=== PATIENT | male | born 1955 | race Caucasian/White ===

== ENCOUNTER 2024-07-29 09:25 | Emergency (ER) | payer MEDICARE, MEDICAID, SELFPAY ==
--- NOTE | 2024-07-29 09:31 | XR_ITS ---
Examination: CTA chest with intravenous contrast 2-D reconstructions 3-D reconstructions, vascular Date and time of exam: July 29, 2024 1122 hours INDICATIONS: Coughing shortness of breath chest pain today CTDI: vol (mGy) 20.9 DLP: (mGycm) 397 Technique: Multiple axial sections of the thorax have been obtained. 3 mm slice thickness, from below the hemidiaphragms to above the apices of the lungs. Mediastinal and lung density settings have been obtained. 2-D sagittal and coronal reconstructions. 3-D angiographic renderings, 3-D volume renderings, 3D post processing, vascular maximum intensity projections obtained. Contrast administered is 100 cc Isovue-370 intravenous. Low dose protocols were performed. One or more of the following dose reduction techniques were used; automated exposure control, adjustment of the mA and/or KV according to patient size, use of iterative reconstruction technique. Findings: No thoracic aortic aneurysmal dilatation No pulmonary artery emboli Mild calcification left main left anterior descending coronary artery Mild enlargement cardiac contour At least 10 subcentimeter pulmonary nodules ranging in size from 2 to 6 mm in both lungs No pulmonary edema No lobar pneumonia Atelectasis in the lingular segment Liver mildly irregular in contour no visualized liver lesion Contracted gallbladder with 3 mm gallstone Spleen is not enlarged Atrophic pancreas Kidneys partially visualized no hydronephrosis Prominent osteopenia IMPRESSION: Negative for pulmonary artery emboli At least 10 subcentimeter bilateral pulmonary nodules, with this study as baseline recommend 6 month follow-up CT chest without contrast to exclude early pulmonary nodular metastatic disease No pneumonia or pulmonary edema or pleural disease Suspect primary hepatocellular disease Recommend hepatobiliary sonography follow-up to confirm cholelithiasis
--- NOTE | 2024-07-29 09:31 | EKG_ITS ---
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
--- NOTE | 2024-07-29 09:31 | XR_ITS ---
Examination: AP chest single view Technique one AP portable upright chest single view Exam date and time: July 29, 2024 0943 hours Comparison September 03, 2023 INDICATIONS: Shortness of breath today, history chronic coughing and worsening shortness of breath August 2023, history mild CHF FINDINGS: Findings suspicious for mild chronic heart failure Mild prominence left ventricle Prominent vascular congestion Septal subtle edema at the lung bases Cardiac leads stable position Prominent osteopenia IMPRESSION: Suspicious for mild chronic heart failure
[2024-07-29 09:32] VITALS: BP 138/84; PULSE 72; RESP 20; TEMP 36.9; O2SAT 100
--- NOTE | 2024-07-29 09:32 | EDNOTE_ITS ---
ED SOB =RME/HPI General Chief Complaint: Shortness of Breath/Dyspnea Stated Complaint: SOB Time Seen by Provider: 07/29/24 09:29 Arrival date/time: 07/29/24 09:25 RME / HPI RME / HPI Narrative: This section includes all my notes and documentations, including HPI, PE, and ED course. Earl Garza MD HPI: 69-year-old male here with about a week history of worsening cough, productive cough, purulent sputum, and dyspnea. No fever or chills. No other complaints. ROS: All negative except as documented in HPI. Physical Exam: General: Alert and oriented. Hacking cough noted. Eyes: Conjunctivae and lids clear. ENT: No nasal congestion. Pharynx normal. TM normal bilaterally. Neck: Supple. Heart: RRR. Lungs: In mild respiratory distress. Good air movement. Moderately decreased air movement with diffuse rhonchi. Abdomen: Soft and nontender. Normal bowel sounds. No distension. No rebound or guarding. Back: No CVA tenderness. Skin: Warm and dry. Neuro: Alert and oriented X 3. I reviewed all diagnostic test results. My interpretation of the EKG is sinus rhythm with no acute ST?T changes. My interpretation of the chest x-ray is increased vascular congestion. My review of the chest CTA report is no PE. Blood tests and urine tests unremarkable. COVID-positive. At this point, diagnoses include COPD exacerbation and COVID. Treatment here included Solu-Medrol and Xopenex neb treatment and Zithromax. Significant improvement noted. Recommended a trial of treatment at home. Based on my best medical judgment, made decision no further evaluation or treatment indicated at this time. Patient understands and agrees to the discharge instructions customized and printed, see below. Discharge instructions from Dr. Garza: --No physical exertion for 3 days to help rest the lungs. ?-No smoking or exposure to smoking or pets or dust or cold or humidity. --Zithromax to kill the germs causing the bronchitis. --Prednisone to help decrease the swelling in the airways. --Albuterol neb treatment every 4-6 hours for 3 days to help keep the airways open. Then as needed for cough or shortness of breath. --See a private doctor on 08/02/2024 for recheck and further care. Ask to review all test results and official radiology reports, to make sure you receive all necessary follow-ups and monitoring. Ask for help until you are completely better. --Seek immediate medical care with worsening or with any concerns. Earl Garza MD Related Data Home Medications ?Medication ?Instructions ?Recorded ?Confirmed bupropion HCl 150 mg tablet,12 hr 150 mg PO DAILY ##0 01/05/09 sustained-release (Wellbutrin SR) levalbuterol tartrate 45 15 gm IH BID ##0 01/05/09 mcg/actuation aerosol inhaler (Xopenex HFA) Albuterol Sulfate/Ipratropium ##0 04/14/12 (Combivent Inhaler) TIOTROPIUM BROMIDE (SPIRIVA 18 MCG) ##0 04/14/12 loratadine 10 mg tablet 10 mg PO DAILY ##0 04/14/12 Previous Rx's ?Medication ?Instructions ?Recorded albuterol sulfate 90 mcg/actuation 2 puff inhalation QID PRN 09/03/23 aerosol inhaler shortness of breath or wheezing #8.5 grams ipratropium 0.5 mg-albuterol 3 mg 3 ml inhalation Q6H PRN shortness 09/03/23 (2.5 mg base)/3 mL nebulization of breath #90 mL soln prednisone 50 mg tablet 50 mg PO QDAY #7 tabs 09/03/23 tiotropium bromide 18 mcg capsule 1 cap inhalation QDAY #1 puff 09/03/23 with inhalation device (Spiriva with HandiHaler) albuterol sulfate 2.5 mg/0.5 mL 2.5 mg (0.5 mL) inhalation Q6H PRN 07/29/24 solution for nebulization shortness of breath or wheezing #75 ea azithromycin 500 mg tablet 500 mg PO QDAY 3 days #3 tabs 07/29/24 (Zithromax TRI-ONELIA) prednisone 20 mg tablet 40 mg PO BID 3 days #12 tabs 07/29/24 Allergies Allergy/AdvReac Type Severity Reaction Status Date / Time No Known Allergies Allergy Verified 07/29/24 10:00 Course Quality Measures none Orders Category Date Time Status Bedside COVID-19 Antigen Test NOW Care 07/29/24 09:31 Active Bedside Influenza A&B Antigen Test NOW Care 07/29/24 09:[address] Screening NOW Care 07/29/24 09:31 Active EKG (ED ONLY) *Do not use* NOW Care 07/29/24 09:31 Completed Saline [Insert IV] NOW Care 07/29/24 09:31 Active Straight [In and Out Catheter] X1 Care 07/29/24 09:[address] angio chest Stat Exams 07/29/24 09:31 Completed EKG (ED Only) Stat Exams 07/29/24 09:31 Draft XR chest 1V portable Stat Exams 07/29/24 09:31 Completed ABG [Arterial Blood Gas] Stat Lab 07/29/24 10:35 Completed BNP [B-Type Natriuretic Peptide] Stat Lab 07/29/24 09:49 Completed CBC Stat Lab 07/29/24 09:49 Completed CMP [Comprehensive Metabolic Panel] Stat Lab 07/29/24 09:49 Completed D-Dimer Stat Lab 07/29/24 09:49 Completed Magnesium Stat Lab 07/29/24 09:49 Completed Troponin I Stat Lab 07/29/24 09:49 Completed Urinalysis, C/S if Indicated Routine Lab 07/29/24 10:50 Completed Azithromycin Po [Zithromax PO] Med 07/29/24 13:19 Discontinued 500 mg PO X1 ONE Levalbuterol Rt [Xopenex Rt Enedina] Med 07/29/24 09:30 Discontinued 1.25 mg INH X1 ONE MethylPREDNISolone.* [SoluMEDROL Inj] Med 07/29/24 09:30 Discontinued 125 mg IVP X1 ONE Sodium Chloride Rt Enedina 0.9% [NS Rt Enedina 0.9%] Med 07/29/24 09:30 Active 3 ml INH PRN PRN Vital Signs Vital signs: Vital Signs Temperature 98.4 F 07/29/24 09:32 Pulse Rate 72 07/29/24 09:32 Respiratory Rate 20 07/29/24 09:32 Blood Pressure 138/84 H 07/29/24 09:32 Pulse Oximetry (%) 100 07/29/24 09:32 Oxygen Delivery Method Nasal Cannula 07/29/24 09:32 Oxygen Flow Rate 6 07/29/24 09:32 Shortness of Breath / Dyspnea Patient data External records reviewed:: [facility] previous records and EMS form Clinical information provided by:: patient and EMS Social determinants that could affect healthcare access:: none Patient has the following chronic illnesses:: COPD How is presenting disease/condition affected by chronic disease/condition?: exacerbated by Evaluation data The following diagnostics were reviewed and interpreted by me:: lab results, radiology exam(s) and EKG tracing(s) (Paced rhythm (69 bpm). Earl Garza MD) Lab and/or radiology exams considered but not ordered:: None Interpretation Summary: COPD exacerbation and COVID Medications / Prescriptions Medications or Prescriptions considered but not ordered:: None Medication administrations:: Medication Administration History Sodium Chloride (Sodium Chloride Rt Enedina 0.9% 3 Ml Nebu) 3 ml INH PRN PRN PRN Reason: SOLN Stop: 08/28/24 09:29 Last Admin: 07/29/24 10:21 Dose: 3 ml Documented By: BJ Discontinued Medications Azithromycin (Azithromycin 250 Mg Tablet) 500 mg PO X1 ONE Stop: 07/29/24 13:20 Levalbuterol HCl (Levalbuterol Rt 1.25 Mg/0.5 Ml Nebu) 1.25 mg INH X1 ONE Stop: 07/29/24 09:31 Last Admin: 07/29/24 10:21 Dose: 1.25 mg Documented By: SARITA Methylprednisolone Sodium Succinate (Methylprednisolone Sod Succ 62.5 Mg/Ml 2ml Vial) 125 mg IVP X1 ONE Stop: 07/29/24 09:31 Last Admin: 07/29/24 09:51 Dose: 125 mg Documented By: JE Solu-Medrol and Xopenex neb treatment and Zithromax Consultations Consultation(s) initiated? (list below): No Diagnosis Shortness of Breath Differential Diagnosis: acute exacerbation of chronic obstructive airways disease, congestive heart failure, community acquired pneumonia, asthma with exacerbation and pulmonary embolism Most likely diagnosis given after review of the tests above:: COPD exacerbation and COVID Admission Indicated Admission indicated?: not indicated Explain why admission is indicated or not indicated:: Admission criteria not met Admission Request Was there a request for admission?: No Disposition Plan Disposition Plan: Discharge Discharge Attestation Discharge Attestation: The patient and all family members were given an opportunity to ask questions and understood the discharge instructions. Discharge instructions specifically effects, indications for sooner follow up or return to the emergency department, and the expected course of current diagnosis. Patient condition: Stable Discharge Plan Plan Patient Disposition: HOME (Self Care) Prescriptions/Referrals Prescriptions/Med Rec: New prednisone 20 mg tablet 40 mg PO BID 3 Days Qty: 12 0RF Taper: Prednisone Taper 20 mg DAILY for 2 Days and 0 Hour 10 mg DAILY for 2 Days and 0 Hour 5 mg DAILY for 7 Days and 0 Hour azithromycin [Zithromax TRI-ONELIA] 500 mg tablet 500 mg PO QDAY 3 Days Qty: 3 0RF albuterol sulfate 2.5 mg/0.5 mL solution for nebulization 2.5 mg inhalation Q6H PRN (Reason: shortness of breath or wheezing) Qty: 75 0RF Rx Instructions: for up to 3 doses No Action bupropion HCl [Wellbutrin SR] 150 MG tablet extended release 12 hr 150 mg PO DAILY Qty: 0 Patient Comments: TAKE ONE TAB BY MOUTH DAILY levalbuterol tartrate [Xopenex HFA] 15 GM HFA aerosol inhaler 15 gm IH BID Qty: 0 Patient Comments: TWO PUFFS INHAILED TWICE DAILY FOR COPD Albuterol Sulfate/Ipratropium (Combivent Inhaler) 14.7 GM AER.W.ADAP Qty: 0 loratadine 10 MG tablet 10 mg PO DAILY Qty: 0 TIOTROPIUM BROMIDE (SPIRIVA 18 MCG) 5 CAP/INH CAP.W.DEV Qty: 0 prednisone 50 mg tablet 50 mg PO QDAY Qty: 7 0RF ipratropium-albuterol 0.5 mg-3 mg(2.5 mg base)/3 mL solution for nebulization 3 ml inhalation Q6H PRN (Reason: shortness of breath) Qty: 90 0RF tiotropium bromide [Spiriva with HandiHaler] 18 mcg capsule, w/inhalation device 1 cap inhalation QDAY Qty: 1 0RF Rx Instructions: puncture 1 cap using device; one dose = 2 inhalations albuterol sulfate 90 mcg/actuation HFA aerosol inhaler 2 puff inhalation QID PRN (Reason: shortness of breath or wheezing) Qty: 8.5 0RF Referrals: No Primary/Family,Physician [Primary Care Provider] - In 1 week Problem List Clinical Impression: Acute exacerbation of chronic obstructive airways disease, COVID Patient/Caregiver Discharge Instructions Discharge Activity: activity as tolerated Education Materials: COVID-19 Home Care, ED COPD Flare Additional Instructions: Discharge instructions from Dr. Garza: --No physical exertion for 3 days to help rest the lungs. ?-No smoking or exposure to smoking or pets or dust or cold or humidity. --Zithromax to kill the germs causing the bronchitis. --Prednisone to help decrease the swelling in the airways. --Albuterol neb treatment every 4-6 hours for 3 days to help keep the airways open. Then as needed for cough or shortness of breath. --See a private doctor on 08/02/2024 for recheck and further care. Ask to review all test results and official radiology reports, to make sure you receive all necessary follow-ups and monitoring. Ask for help until you are completely better. --Seek immediate medical care with worsening or with any concerns. Print Language: Vietnamese Stand Alone Forms: Cat Award Info., Patient Portal Info Letter
[2024-07-29 09:33] VITALS: PULSE 100; RESP 18; O2SAT 100
[2024-07-29 09:45] VITALS: BMI 16.7
[2024-07-29] MEDS: MethylPREDNISolone SOD SUCC 62.5 MG/ML 2ML VIAL 125 MG IVP (09:51)
[2024-07-29 10:09] LABS: Basophils % (Auto) 0 % (0-2.5); Eosinophils # (Auto) 0.1 Thou/mm3 (0.0-0.5); Eosinophils % (Auto) 2 % (0-10); Hematocrit 38.9 % (41.0-53.0); Hemoglobin 12.3 g/dL (13.5-16.0); Immature Granulocytes % (Auto) 0 % (0-0); Immature Granulocytes Auto 0.02 Thou/mm3 (0.00-0.00); Lymphocytes % (Auto) 15 % (10-50); Mean Corpuscular HGB Conc 31.6 g/dl (31.0-37.0); Mean Corpuscular Volume 92 fL (80-100); Monocytes # (Auto) 0.5 Thou/mm3 (0.0-0.8); Monocytes % (Auto) 7 % (0-12); Neutrophils # (Auto) 5.1 Thou/mm3 (1.8-7.7); Neutrophils % (Auto) 76 % (37-80); Nucleated Red Blood Cell % 0 /100 WBC (0); Platelet Count 131 Thou/mm3 (140-440); RDW Standard Deviation 48.7 fL (35.1-43.9); Red Blood Count 4.24 Miln/mm3 (4.50-5.90); White Blood Count 6.7 Thou/mm3 (3.8-10.6)
[2024-07-29] MEDS: LEVALBUTEROL RT 1.25 MG/0.5 ML NEBU INH (10:21)
[2024-07-29] MEDS: SODIUM CHLORIDE RT SOL 0.9% 3 ML NEBU INH (10:21)
[2024-07-29 10:22] VITALS: PULSE 73; RESP 21; O2SAT 100
[2024-07-29 10:27] LABS: Alanine Aminotransferase 26 U/L (10-49); Albumin, Serum 3.9 gm/dL (3.4-4.8); Albumin/Globulin Ratio 1.5 (1.2-2.2); Alkaline Phosphatase 63 U/L (46-116); Anion Gap 0 (7-16); Aspartate Amino Transferase 28 U/L (0-34); BUN/Creatinine Ratio 26 Ratio (12-20); Bilirubin,Total 0.7 mg/dL (0.3-1.2); Blood Urea Nitrogen 21 mg/dL (9-23); Calcium 8.6 mg/dL (8.3-10.6); Calcium (Corrected) 8.7 mg/dL (8.5-10.1); Carbon Dioxide 35.7 mMol/L (20.0-31.0); Chloride 99 mMol/L (98-107); Creatinine (Component) 0.8 mg/dL (0.6-1.3); Estimated Creatinine Clearance 78.8 mL/min (>60); Globulin 2.6 gm/dL (2.3-3.5); Glucose 91 mg/dL (74-106); Magnesium 1.9 mg/dL (1.6-2.6); Osmolality,Calculated 273 (275-295); Potassium 4.2 mMol/L (3.4-5.1); Sodium 135 mMol/L (136-145); Total Protein 6.5 gm/dL (5.7-8.2); eGFR > 60 See Note
[2024-07-29 10:29] LABS: B-Type Natriuretic Peptide 912 pg/mL (0-100)
[2024-07-29 10:32] LABS: D-Dimer 738 ng/mL (<600)
[2024-07-29 10:43] LABS: Base Excess 7 (-3-3); HCO3 34 mEq/L (20-26); O2 Saturation 101 % (91-98); PCO2 55 mmHg (32.0-48.0); PO2 248 mmHg (83-108)
[2024-07-29 10:51] LABS: Allen Test Performed/OK; Inspired O2, VO2 Liters 2 L/min; Puncture Site Right Radial
[2024-07-29 11:15] LABS: Collection Type, Urine Clean Catch
[2024-07-29 12:40] VITALS: BP 133/69; PULSE 55; RESP 19; TEMP 36.8; O2SAT 95
[2024-07-29 13:04] LABS: Bilirubin,Urine Negative (Negative); Blood,Urine Negative (Negative); Clarity,Urine Clear (Clear/Hazy); Color,Urine Lt-Yellow (Lt Yel-Yel); Culture Indicated,Urine Not Indicated; Glucose, Urine Negative (Negative); Ketones,Urine Negative (Negative); Leukocyte Esterase,Urine Negative (Negative); Nitrite,Urine Negative (Negative); Protein,Urine Negative (Neg - Trace); RBC,Urine 1 /hpf (0-3); Specific Gravity,Urine 1.011 (1.001-1.035); Squamous Epithelial Cell,Urine < 1 /hpf (0-5); WBC,Urine < 1 /hpf (0-5)
[2024-07-29 13:55] VITALS: BP 138/76; PULSE 65; RESP 17; TEMP 36.6; O2SAT 95
[2024-07-29] MEDS: AZITHROMYCIN 250 MG TABLET 500 MG PO (14:04)
== END 2024-07-29 14:34 | disposition home or self-care (01) ==
PROVIDERS: Emergency Provider Emergency Medicine
DX: J44.1 Chronic obstructive pulmonary disease with (acute) exacerbation (principal); U07.1 COVID-19
CPT/HCPCS: 36415; 36600; 71045; 71275; 80053; 81001; 82803; 83735; 83880; 84484; 85025; 85379; 87400; 87811; 93005; 94640; 96374; 99285; A4649; J2919; Q9967; A9270